=== PATIENT | male | born 1940 | race African-American/Black ===

== ENCOUNTER 2025-03-24 11:31 | Inpatient (IN) | payer OTHER, MEDICARE ==
[~2025-03-24] VITALS: Ht 177.8 cm; Wt 91.7 kg
[2025-03-24 12:06] LABS: BASOPHILS % 0.9 % (0.0-2.0); EOSINOPHILS % 1.8 % (0.0-5.0); HEMATOCRIT. 41.8 % (42.0-52.0); HEMOGLOBIN. 14.3 g/dL (14.0-18.0); LYMPHOCYTES % 20.1 % (20.0-50.0); MEAN CORPUSCULAR HEMOGLOBIN 30.7 pg (28.0-32.0); MEAN CORPUSCULAR HGB CONC 34.3 g/dL (31.0-37.0); MEAN CORPUSCULAR VOLUME 89.3 fL (80.0-94.0); MEAN PLATELET VOLUME 8.2 fl (7.4-10.4); MONOCYTES % 6.1 % (2.0-8.0); NEUTROPHILS % 71.1 % (40.0-76.0); PLATELET 317 x1000/uL (130-400); RED BLOOD CELL COUNT 4.67 mill/uL (4.7-6.1); WHITE BLOOD COUNT 9.7 x1000/uL (4.5-11.0)
[2025-03-24 12:19] LABS: CHLORIDE 102 mEq/L (98-107); POTASSIUM 3.8 mEq/L (3.5-5.1)
[2025-03-24 12:20] LABS: CARBON DIOXIDE 28 mEq/L (21-32); SODIUM 141 mEq/L (136-145)
[2025-03-24 12:25] LABS: CREATININE 1.5 mg/dL (0.6-1.3)
[2025-03-24 12:26] LABS: GLUCOSE 148 mg/dL (70-105); UREA NITROGEN BLOOD 21 mg/dL (9-23)
[2025-03-24 12:42] LABS: TROPONIN I HIGH SENSITIVITY 130 ng/L (3.0-53)
[2025-03-24] MEDS: ENOXAPARIN 100MG/ML SYR SUBCUT ONE (13:18)
[2025-03-24] MEDS: LABETALOL 5MG/ML 4ML INJ IV SCH (13:56)
[2025-03-24] MEDS ORDERED: IPRATROPIUM/ALBUTEROL 0.5-3(2.5)MG/3ML NEB HHN PRN (14:15)
[2025-03-24] MEDS ORDERED: LORAZEPAM 0.5MG TABLET PO PRN (14:15)
[2025-03-24] MEDS ORDERED: ACETAMINOPHEN 325MG TABLET PO PRN ×2 (14:15)
[2025-03-24] MEDS ORDERED: DEXTROSE 50% WATER 50ML SYRINGE IV PRN (14:15)
[2025-03-24] MEDS ORDERED: GUAIFENESIN 200MG/10ML SUGAR FREE UDC PO PRN (14:15)
[2025-03-24] MEDS ORDERED: DOCUSATE SODIUM 100MG CAPSULE PO PRN (14:15)
[2025-03-24] MEDS ORDERED: ONDANSETRON HCL 4MG/2ML INJ IV PRN (14:15)
[2025-03-24] MEDS ORDERED: NITROGLYCERIN 0.4MG TABLET SL SL PRN (15:15)
[2025-03-24 15:40] LABS: VITAMIN B12 SERUM 91 pg/mL (211-911)
[2025-03-24 15:50] LABS: TRIGLYCERIDE 133 mg/dL (0-150)
[2025-03-24 15:51] LABS: LDL CHOLESTEROL 123 mg/dL (5-100); T4 FREE 1.22 ng/dL (0.89-1.76); THYROID STIMULATING HORMONE 1.59 uIU/mL (0.55-4.78)
[2025-03-24 15:52] LABS: HDL CHOLESTEROL 27 mg/dL (>55)
[2025-03-24 15:53] LABS: CHOLESTEROL 173 mg/dL (<200)
[2025-03-24 15:55] LABS: TROPONIN I HIGH SENSITIVITY 127 ng/L (3.0-53)
[2025-03-24 15:57] LABS: IRON 66 ug/dL (65-175)
[2025-03-24 16:00] VITALS: BP 146/62; PULSE 68; RESP 17; TEMP 36.7; O2SAT 99
[2025-03-24 16:00] LABS: TOTAL IRON BINDING CAPACITY 383 ug/dl (250-425)
[2025-03-24 16:14] LABS: PROTHROMBIN TIME 10.7 sec (9.6-11.0)
[2025-03-24] MEDS: METOPROLOL SUCCINATE 50MG ER TABLET PO SCH (16:23)
[2025-03-24] MEDS: LISINOPRIL 40MG TABLET PO SCH (16:24)
[2025-03-24] MEDS: TRAMADOL 50MG TABLET PO PRN (16:27)
[2025-03-24] MEDS: AMLODIPINE 10MG TABLET PO SCH (16:58)
[2025-03-24] MEDS: BLOOD SUGAR DIAGNOSTIC STRIP TEST SCH (17:30)
[2025-03-24 18:00] VITALS: BP 167/71; PULSE 67; RESP 16; O2SAT 99
[2025-03-24] MEDS: INSULIN LISPRO 100 UNITS/ML SUBCUT SCH (18:00)
[2025-03-24] MEDS ORDERED: CHOL100046 PO (18:12)
[2025-03-24] MEDS ORDERED: AMLO10TA80 PO (18:12)
[2025-03-24] MEDS ORDERED: ASPI-1497 PO (18:12)
[2025-03-24] MEDS ORDERED: METF-1149 MT (18:12)
[2025-03-24] MEDS ORDERED: DIVA125C2 MT (18:12)
[2025-03-24] MEDS ORDERED: MULT-380 MT (18:12)
[2025-03-24] MEDS ORDERED: LISI40TA13 PO (18:12)
[2025-03-24] MEDS ORDERED: DICL100G58 TP (18:12)
[2025-03-24] MEDS ORDERED: ALLO100T PO (18:12)
[2025-03-24] MEDS ORDERED: TRAZ-251 PO (18:12)
[2025-03-24] MEDS ORDERED: INSU100I28 SQ (18:12)
[2025-03-24] MEDS ORDERED: TOPUD PO (18:12)
[2025-03-24] MEDS ORDERED: TRAZ-251 MT (18:12)
[2025-03-24] MEDS ORDERED: CLOT30LO3 TP (18:12)
[2025-03-24] MEDS ORDERED: MEMA5TAB16 PO (18:12)
[2025-03-24] MEDS ORDERED: LIDO1ADH48 TP (18:12)
[2025-03-24] MEDS ORDERED: ATOR-2 PO (18:12)
[2025-03-24] MEDS ORDERED: METO-396 MT (18:12)
[2025-03-24] MEDS ORDERED: ASCO500C18 MT (18:12)
[2025-03-24] MEDS ORDERED: GABA-1180 MT (18:12)
[2025-03-24 19:17] VITALS: BP 162/65; PULSE 72; RESP 13; TEMP 36.8
[2025-03-24 20:00] VITALS: BP 170/99; PULSE 76; RESP 14; TEMP 36.8; O2SAT 97
[2025-03-24] MEDS: ATORVASTATIN CALCIUM 40MG TABLET PO SCH (21:15)
[2025-03-24] MEDS: TRAZODONE HCL 50MG TABLET PO SCH (21:16)
[2025-03-24] MEDS: MEMANTINE HCL 5MG TABLET PO SCH (21:16)
[2025-03-24] MEDS: ENOXAPARIN 120MG/0.8ML SYR SUBCUT SCH (21:17)
[2025-03-24] MEDS: CLONIDINE 0.1MG TABLET PO PRN (21:39)
[2025-03-24 22:00] VITALS: PULSE 75; RESP 14; O2SAT 80
[2025-03-24] MEDS: LORAZEPAM 2MG/ML UD SYRINGE IV SCH (22:30)
[2025-03-24] MEDS: HALOPERIDOL LACTATE 5MG/ML VIAL IM SCH (23:36)
[2025-03-25] VITALS (11 sets, daily range): BP systolic 111–178; BP diastolic 68–119; PULSE 49–74; RESP 11–20; TEMP 36.2–36.8; O2SAT 96–98
[2025-03-25] MEDS: ASPIRIN 81MG TABLET PO SCH (09:31)
[2025-03-25] MEDS: PANTOPRAZOLE 40MG DR TABLET PO SCH (09:31)
[2025-03-25 09:41] LABS: BASOPHILS % 0.6 % (0.0-2.0); EOSINOPHILS % 1.5 % (0.0-5.0); HEMATOCRIT. 42.2 % (42.0-52.0); HEMOGLOBIN. 14.3 g/dL (14.0-18.0); MEAN CORPUSCULAR HEMOGLOBIN 30.4 pg (28.0-32.0); MEAN CORPUSCULAR HGB CONC 33.8 g/dL (31.0-37.0); MEAN CORPUSCULAR VOLUME 90.1 fL (80.0-94.0); MEAN PLATELET VOLUME 8.7 fl (7.4-10.4); MONOCYTES % 6.2 % (2.0-8.0); NEUTROPHILS % 72.7 % (40.0-76.0); PLATELET 303 x1000/uL (130-400); RED BLOOD CELL COUNT 4.69 mill/uL (4.7-6.1); WHITE BLOOD COUNT 10.3 x1000/uL (4.5-11.0)
[2025-03-25] MEDS: HYDRALAZINE 20MG/ML VIAL IV PRN (09:58)
[2025-03-25] MEDS ORDERED: NALOXONE HCL 0.4MG/ML VIAL IV PRN (10:45)
[2025-03-25 10:46] LABS: CREATINE KINASE MB FRACTION 3.5 ng/mL (0.5-3.6)
[2025-03-25 10:48] LABS: CHLORIDE 101 mEq/L (98-107); POTASSIUM 3.9 mEq/L (3.5-5.1); SODIUM 140 mEq/L (136-145)
[2025-03-25 10:49] LABS: CARBON DIOXIDE 27 mEq/L (21-32)
[2025-03-25 10:50] LABS: CALCIUM 9.5 mg/dL (8.7-10.4)
[2025-03-25 10:54] LABS: CREATININE 1.3 mg/dL (0.6-1.3); GLUCOSE 133 mg/dL (70-105)
[2025-03-25 10:55] LABS: UREA NITROGEN BLOOD 17 mg/dL (9-23)
[2025-03-25 12:09] LABS: TROPONIN I HIGH SENSITIVITY 422 ng/L (3.0-53)
[2025-03-25] MEDS: HYDRALAZINE HCL 25MG TABLET PO SCH (13:24)
[2025-03-25 17:52] LABS: TROPONIN I HIGH SENSITIVITY 684 ng/L (3.0-53)
[2025-03-25] MEDS ORDERED: QUETIAPINE FUMARATE 25MG TABLET PO SCH (21:00)
[2025-03-25] MEDS ORDERED: ENOXAPARIN 100MG/ML SYR SUBCUT SCH (21:00)
== END 2025-03-25 17:50 | disposition short-term general hospital (02) | DRG 281 ==
LOC: ER 11:31 → 5EST 13:16 → EDBEDREQSVC 13:33 → EDBEDREQ 13:33
PROVIDERS: ADMIT Internal Medicine; ATTEND Internal Medicine
DX: I16.1 Hypertensive emergency (principal); N17.9 Acute kidney failure, unspecified; I21.A1 Myocardial infarction type 2; F02.80 Dementia in other diseases classified elsewhere, unspecified severity, without behavioral disturbance, psychotic disturbance, mood disturbance, and anxiety; G30.9 Alzheimer's disease, unspecified; I10 Essential (primary) hypertension; I25.10 Atherosclerotic heart disease of native coronary artery without angina pectoris; M10.9 Gout, unspecified; E78.00 Pure hypercholesterolemia, unspecified; E11.9 Type 2 diabetes mellitus without complications; Z95.1 Presence of aortocoronary bypass graft; Z91.148 Patient's other noncompliance with medication regimen for other reason; Z79.82 Long term (current) use of aspirin; Z79.899 Other long term (current) drug therapy; Z85.46 Personal history of malignant neoplasm of prostate; Z95.5 Presence of coronary angioplasty implant and graft
CPT/HCPCS: 36415; 71045; 80048; 80061; 82553; 82607; 82962; 83036; 83540; 83550; 84439; 84443; 84484; 85025; 93005; 93306; 97166; 99291; A4606; J0360; J1630; J1650; J2060; J3490